=== PATIENT | male | born 1995 | race Hispanic/Latino ===

== ENCOUNTER 2019-01-09 08:47 | Emergency (ER) | payer OTHER ==
[~2019-01-09] VITALS: Ht 175.3 cm; Wt 76.2 kg
[2019-01-09] MEDS ORDERED: KETOROLAC 60 MG/2 ML VIAL (J1885) IM ONE (09:15)
--- NOTE | 2019-01-09 09:38 | REP ---
Chest two views HISTORY: Chest pain Comparison: None The lungs are clear. The heart is normal in size. The pulmonary vasculature is normal in appearance. The bony structure is intact. IMPRESSION: No acute disease. Electronically Signed by Remington Jones MD 01/09/2019 09:29 A
[2019-01-09 10:05] LABS: CK-MB VALUE MASS 1.3 NG/ML (<3.6); CPK CREATINE PHOSPHOKINASE 248 U/L (39-308); MB/CK RELATIVE INDEX 0.52 (< OR =4); TROPONIN I < 0.02 NG/ML (< 0.10)
[2019-01-09] MEDS ORDERED: IBUP-1022 PO (11:23)
[2019-01-09 11:31] VITALS: BP 112/65
[2019-01-09 12:31] LABS: HEPATITIS B SURFACE ANTIBODY POSITIVE (POSITIVE); HEPATITIS B SURFACE ANTIGEN NEGATIVE (NEGATIVE); HEPATITIS C VIRUS ABY INDEX < 0.0 INDEX (<0.8); HIV 1&2 SCREEN CENTAUR NEGATIVE (NEGATIVE)
[2019-01-09 13:23] LABS: CHLAMYDIA DNA AMPLIFICATION POSITIVE (NEGATIVE); GC DNA AMPLIFICATION NEGATIVE (NEGATIVE)
--- NOTE | 2019-01-09 16:21 | ECGEPIP ---
[facility] - ED Test Date: 2019-01-09 Pat Name: STEVIE CHAVARRIA Department: Room: - Gender: Male Network Operations Lead: JRachael : 1995 Requested By: Zoe Terry Order Number: [id number] Reading MD: Zoe Terry Measurements Intervals [place] Rate: 58 P: 55 WI: 162 QRS: 87 QRSD: 114 T: 37 QT: 364 QTc: 359 Interpretive Statements SINUS BRADYCARDIA WITH SINUS ARRHYTHMIA INCOMPLETE RIGHT BUNDLE BRANCH BLOCK ST ELEVATION, PROBABLY EARLY REPOLARIZATION, CLINICAL CORRELATION NO PRIOR FOR COMPARISON Electronically Signed on 01-09-2019 16:21:01 EDT by Zoe Terry
== END 2019-01-09 11:31 | disposition home or self-care (01) ==
LOC: M ED 08:47
DX: R07.9 Chest pain, unspecified (principal); R00.1 Bradycardia, unspecified; I45.19 Other right bundle-branch block; Z72.0 Tobacco use
CPT/HCPCS: 71046; 82550; 82553; 84484; 85379; 85652; 86706; 86780; 86803; 87340; 87389; 87661; 93005; 96372; 99284; J1885

== ENCOUNTER 2019-01-13 14:04 | Emergency (ER) | payer OTHER ==
[~2019-01-13] VITALS: Ht 175.3 cm; Wt 70.5 kg
[~2019-01-13 14:04] MED LIST: IBUP-1022 PO
[2019-01-13] MEDS ORDERED: ISOVUE-370 76% 100ML VIAL (Q9967) As Ordered ONE (14:38)
[2019-01-13 14:49] LABS: BASO # 0.1 10^3/uL (0.0-0.2); BASO % 0.8 % (0.0-1.0); EOS # 0.1 10^3/uL (0.0-0.50); EOS % 1.5 % (0.0-3.0); HEMATOCRIT 46.8 % (42.0-52.0); HEMOGLOBIN 16.1 g/dl (13.5-17.5); LYMPH # 1.9 10^3/uL (1.5-6.5); LYMPH % 28.8 % (24.0-44.0); MEAN CORPUSCULAR HEMOGLOBIN 30.8 pg (27.0-33.0); MEAN CORPUSCULAR HGB CONC 34.4 g/dl (32.0-36.5); MEAN CORPUSCULAR VOLUME 89.5 fl (80.0-96.0); MONO # 0.2 10^3/uL (0.0-0.8); MONO % 3.5 % (0.0-5.0); NEUTROPHILS # 4.2 10^3/uL (1.8-7.7); NEUTROPHILS % 65.1 % (36.0-66.0); PLATELET COUNT, AUTOMATED 248 10^3/uL (150-450); RED BLOOD COUNT 5.23 10^6/uL (4.30-6.10); WHITE BLOOD COUNT 6.5 10^3/uL (4.0-10.0)
[2019-01-13 15:06] LABS: INR 0.95; PROTHROMBIN TIME 12.8 SECONDS (12.1-14.4)
[2019-01-13 15:07] LABS: PARTIAL THROMBOPLASTIN TIME 34.5 SECONDS (25.4-37.6)
[2019-01-13] MEDS ORDERED: ALBUTEROL SULFATE 2.5 MG/0.5 ML INH NEB SOLN INH ONE (16:45)
[2019-01-13] MEDS ORDERED: PRED20TA PO (17:11)
[2019-01-13] MEDS ORDERED: DOXY-350 PO (17:11)
[2019-01-13] MEDS ORDERED: PROA1AER2 INH (17:11)
[2019-01-13] MEDS ORDERED: ALBUTEROL 90 MCG/ACT 8GM HFA INHALER INH ONE (17:15)
[2019-01-13] MEDS ORDERED: predniSONE 20 MG TAB PO ONE (17:15)
[2019-01-13] MEDS ORDERED: DOXYCYCLINE HYCLATE 100 MG TAB PO ONE (17:15)
[2019-01-13 17:17] VITALS: BP 123/77
--- NOTE | 2019-01-14 07:41 | REP ---
CT ANGIOGRAM CHEST: TECHNIQUE: Axial contrast enhanced images from the thoracic inlet to the upper abdomen using 100 mL Isovue 370 intravenous contrast material with multiplanar reformations. There is no CT evidence of pulmonary embolism. There is no thoracic aortic aneurysm or dissection. There is no evidence of mediastinal, hilar or chest wall lymphadenopathy. There is no pleural or pericardial effusion. No infiltrate is seen in either lung. The visualized upper abdominal structures are unremarkable. IMPRESSION: Negative CT angiogram of the chest with no CT evidence of pulmonary embolism or other pathology. Electronically Signed by Kenny Paz MD 01/14/2019 08:37 A
== END 2019-01-13 17:28 | disposition home or self-care (01) ==
LOC: M ED 14:04 → EDBD 14:04 → M ED 17:28
DX: J20.9 Acute bronchitis, unspecified (principal); Z87.891 Personal history of nicotine dependence
CPT/HCPCS: 71275; 80047; 85025; 85610; 85730; 94640; 99284; Q9967